=== PATIENT | female | born 1950 | race Caucasian/White ===

== ENCOUNTER 2024-04-14 12:00 | Emergency (ER) | payer OTHER ==
--- OUTSIDE RECORDS SUMMARY | 2024-04-14 12:03 | XMS REPORT | Continuity of Care Document ---
Author Name Unknown Address [address] [facility] [address] thconnect Address [address] [facility] [address] [place] [address] Care Team Providers Care Loom Repairer Name Role Phone Pcp, Patient Does Not Have A Primary Care Physic jose DOREEN ZAMBRANO Attending Clinician Unavailable Doreen Zambrano PA-C Attending Clinician Unknown, Attending Attending Clinician Unavailab le Payers Payer Name Policy Type Policy Number Effective Date Expirati on Date Source MEDICARE PART A \T\ B [id number] 1994 00:00:00 Allergies, Adverse Reactions, Alerts Allergy Name Allergy Type Status Severity Reaction(s) Onset Date Inactive Date Treating Clinician Comments Source CODEINE DRUG INGREDI Active High Unknown-Cmnt 04-12 00:00: 00 [facility] Codeine Propensi ty to adverse reaction s Active Unknown - See comments 04-12 00:00: 00 [facility] Social History Social Habit Start Date Stop Date Quantity Comments Source Sexual orientation [facility] Sex assigned at 1950 00:00:00 1950 00:00:00 [facility] Smoking Status Start Date Stop Date Source Tobacco smoking consumption unknown [facility] Medications Ordered Medication Name Filled Medication Name Start Date Stop Date Current Medication? Ordering Clinician Indication Dosage Frequency Signature (SIG) Comments Components Source dexamethaso ne (DECADRON PHOSPHATE) 4 mg/mL injection 4 mg 04-12 17:15: 00 04-12 17:34 :00 No [id number] 4mg 4 mg, Intramuscu lar, ONCE, 1 dose, On Mon04/12/24 at 1115, 1 mL [facility] cetirizine 10 mg tablet 04-12 00:00: 00 Yes [id number] 10mg Take 1 tablet by mouth in the morning. [facility] fluticasone propionate 50 mcg/actuati on nasal spray 04-12 00:00: 00 Yes [id number] 2{spray } Use 2 Sprays in each nostril in the morning. [facility] azelastine 137 mcg (0.1 %) nasal spray 04-12 00:00: 00 Yes [id number] 1{spray } Use 1 Micro in each nostril in the morning and 1 Micro in the evening. Use in each nostril as directed [facility] bromphenira mine-pseudo ephedrine-D M (BROMFED DM) 2-30-10 mg/5 mL syrup 04-12 00:00: 00 Yes [id number] 5mL Take 5 mL by mouth 3 (three) times daily as needed for Cold symptoms or Cough. [facility] Vital Signs Vital Name Observation Time Observation Value Comments S reid Systolic blood pressure 2024-04-12 17:02:00 105 mm[Hg] [facility] Diastolic blood pressure 2024-04-12 17:02:00 81 mm[Hg] [facility] Heart rate 2024-04-12 17:02:00 84 /min [facility] Body temperature 2024-04-12 17:02:00 37.28 Shannan [facility] Respiratory rate 2024-04-12 17:02:00 15 /min [facility] Body height 2024-04-12 17:02:00 165.1 cm [facility] Body weight 2024-04-12 17:02:00 71.668 kg [facility] BMI 2024-04-12 17:02:00 26.29 kg/m2 [facility] Oxygen saturation in Arterial blood by Pulse oximetry 2024-04-12 17:02:00 96 /min [facility] Encounters Start Date/Time End Date/Time Encounter Type Admission Type Attending Clinicians Care Facility Care Department Encounter ID Source 2024-04-12 11:00:00 2024-04-12 11:44:15 Outpatient R DOREEN ZAMBRANO [facility] [id number] [facility] 2024-04-12 11:00:00 2024-04-12 11:44:15 Urgent Care Doreen Zambrano Unknown, Attending [facility] [id number] [facility]
[2024-04-14 13:17] LABS: SARS-CoV-2 Antigen CONTROL BLUE LINE VIS/BG OK; SARS-CoV-2 Antigen Rapid Res Negative (Negative)
--- NOTE | 2024-04-14 13:33 | RAD REPORT ---
EXAMINATION: TWO VIEW CHEST XR CLINICAL INDICATION: Cough;Congestion TECHNIQUE: 2 views of the chest was performed. COMPARISON: No prior exam. FINDINGS: The lungs are hyperexpanded suggesting COPD. The heart is upper limit of normal in size. No displaced fractures evident. IMPRESSION: COPD is suspected without acute finding identified.
--- NOTE | 2024-04-14 14:09 | ER ---
Nurse's Notes [facility] Name: Gabbi Vital Age: 73 yrs Sex: Female : 1950 Arrival Date: 04/14/2024 Time: 12:00 Bed 16 Private MD: Diagnosis: Acute tonsillitis, unspecified;Unspecified acute conjunctivitis, bilateral;Acute bronchitis, unspecified Presentation: 04/14 12:20 Chief complaint: Patient states: cough, sinus drainage that all began Monday. ss Coronavirus screen: Client denies travel out of the [place] in the last 14 days. Ebola Screen: Patient denies exposure to infectious person. Patient denies travel to an Ebola-affected area in the 21 days before illness onset. Initial Sepsis Screen: Does the patient meet any 2 criteria? No. Patient's initial sepsis screen is negative. Does the patient have a suspected source of infection? No. Patient's initial sepsis screen is negative. Risk Assessment: Do you want to hurt yourself or someone else? Patient reports no desire to harm self or others. Onset of symptoms was April 08, 2024. 12:20 Method Of Arrival: Ambulatory ss 12:20 Acuity: JOSE 3 ss Historical: - Allergies: 12:21 No Known Allergies; ss - PMHx: 12:21 None; ss - Infectious Disease History:: Denies. - Social history:: Smoking status: Patient/guardian denies using tobacco, the patient reports quitting approximately 20 years ago. Screenin:19 [facility] ED Fall Risk Assessment (Adult) History of falling in the last 3 months, kc6 including since admission No falls in past 3 months (0 pts) Confusion or Disorientation No (0 pts) Intoxicated or Sedated No (0 pts) Impaired Gait No (0 pts) Mobility Assist Device Used No (0 pt) Altered Elimination No (0 pt) Score/Fall Risk Level 0 - 2 = Low Risk Oriented to surroundings, Maintained a safe environment, Educated pt \T\ family on fall prevention, incl call for assistance when getting out of bed. Abuse screen: Denies threats or abuse. Denies injuries from another. Nutritional screening: No deficits noted. Tuberculosis screening: No symptoms or risk factors identified. Assessment: 14:20 General: Appears in no apparent distress. comfortable, well groomed, well developed, kc6 Behavior is calm, cooperative, appropriate for age, Reports feeling ill for > 3 days. Pain: Denies pain. Neuro: Level of Consciousness is awake, alert, obeys commands, Oriented to person, place, time, situation, Appropriate for age. Cardiovascular: Capillary refill < 3 seconds. Respiratory: Reports cough that is persistent Airway is patent Trachea midline Respiratory effort is even, unlabored, Respiratory pattern is regular, symmetrical. GI: No signs and/or symptoms were reported involving the gastrointestinal system. : No signs and/or symptoms were reported regarding the genitourinary system. EENT: Reports nasal congestion pain when swallowing. EENT: Eyes reddened. Throat is reddened bilaterally with gag reflex present. Derm: No signs and/or symptoms reported regarding the dermatologic system. Skin is intact, is healthy with good turgor, Skin is pink, warm \T\ dry. Musculoskeletal: No signs and/or symptoms reported regarding the musculoskeletal system. Circulation, motion, and sensation intact. Range of motion: intact in all extremities. Vital Signs: 12:20 BP 138 / 92; Pulse 79; Resp 17; Temp 98(TE); Pulse Ox 98% on R/A; Weight 70.31 kg; ss Height 5 ft. 5 in. ; 12:20 Body Mass Index 25.79 (70.31 kg, 165.1 cm) ED Course: 12:04 Patient arrived in ED. im 12:07 Joyce Jj PA-C is PHCP. sb4 12:07 Andrés Davis MD is Attending Physician. sb4 12:21 Triage completed. ss 12:21 Arm band placed on right wrist. ss 12:37 Strep Sent. kj2 12:37 Flu Sent. kj2 12:37 SARS RAPID Sent. kj2 13:24 Chest Pa And Lat (2 Views) XRAY In Process Unspecified. EDMS 14:11 Laila Kwok, RUT is Primary Nurse. kc6 14:19 Patient has correct armband on for positive identification. Bed in low position. Call kc6 light in reach. Side rails up X 1. Pulse ox on. NIBP on. Door closed. Noise minimized. Lights dimmed. Pillow given. 14:19 No provider procedures requiring assistance completed. Patient did not have IV access kc6 during this emergency room visit. Administered Medications: 14:18 Drug: Dexamethasone IM 10 mg IM once Route: IM; Site: right deltoid; kc6 Outcome: 14:08 Discharge ordered by . sb4 14:19 Discharged to home ambulatory, kc6 14:19 Condition: good 14:19 Discharge instructions given to patient, Instructed on discharge instructions, follow up and referral plans. medication usage, Demonstrated understanding of instructions, follow-up care, medications, Prescriptions given X 3, 14:21 Patient left the ED. kc6 Signatures: Dispatcher [employer] EDMS Jennifer Laguerre, RN RN Laila Posada RN RN kc6 Joyce Jj, PA-C PA-C Yuliet Armijo Krystal, RN RN kj2
--- NOTE | 2024-04-14 14:09 | EDPHYS ---
Physician Documentation [facility] Name: Gabbi Vital Age: 73 yrs Sex: Female : 1950 Arrival Date: 04/14/2024 Time: 12:00 Bed 16 Private MD: ED Physician Andrés Davis HPI: 04/14 13:03 This 73 yrs old Female presents to ER via Ambulatory with complaints of flu symptoms. sb4 13:17 patient reports feeling sick for about 1 week- cough, sore throat, sinus congestion, sb4 post nasal drip. has been seen at urgent care twice, states she was not fully examined or swabbed, doesn't know what she has. has been taking OTC medications- decongestants, eye drops, cough suppressants, nasal sprays- without significant improvement. states today she woke up with yellow drainage out of both of her eyes. Historical: - Allergies: 12:21 No Known Allergies; ss - PMHx: 12:21 None; ss - Infectious Disease History:: Denies. - Social history:: Smoking status: Patient/guardian denies using tobacco, the patient reports quitting approximately 20 years ago. ROS: 13:17 Cardiovascular: Negative for chest pain, palpitations, and edema, sb4 13:17 Eyes: Positive for discharge, pain, 13:17 ENT: Positive for hoarseness, nasal discharge, sinus congestion, sore throat, 13:17 Respiratory: Positive for cough, with green sputum, 13:17 All other systems are negative, Exam: 13:53 Head/Face: Normocephalic, atraumatic. Cardiovascular: Regular rate and rhythm with a sb4 normal S1 and S2. Respiratory: No increased work of breathing, no retractions or nasal flaring. Skin: Warm, dry with normal turgor. Normal color with no rashes, no lesions, and no evidence of cellulitis. 13:53 Constitutional: The patient appears alert, awake, obviously ill, 13:53 Eyes: Conjunctiva: exudate, bilaterally, 13:53 ENT: TM's: are normal, no acute changes, Posterior pharynx: Tonsils: bilaterally enlarged, with erythema, with exudate, Vital Signs: 12:20 BP 138 / 92; Pulse 79; Resp 17; Temp 98(TE); Pulse Ox 98% on R/A; Weight 70.31 kg; ss Height 5 ft. 5 in. ; 12:20 Body Mass Index 25.79 (70.31 kg, 165.1 cm) ss MDM: 12:10 Medical Screening Exam initiated sb4 13:53 Data reviewed: vital signs, nurses notes, lab test result(s), radiologic studies, and sb4 as a result, I will discharge patient. Counseling: I had a detailed discussion with the patient and/or guardian regarding the historical points, exam findings, and any diagnostic results supporting the discharge/admit diagnosis, lab results, radiology results, the need for outpatient follow up, for definitive care, to return to the emergency department if symptoms worsen or persist or if there are any questions or concerns that arise at home. 04/14 12:26 Order name: Strep sb4 04/14 12:26 Order name: SARS RAPID; Complete Time: 13:19 sb4 04/14 12:26 Order name: Flu; Complete Time: 13:19 sb4 04/14 13:21 Order name: Throat Culture EDMS 04/14 12:26 Order name: Chest Pa And Lat (2 Views) XRAY; Complete Time: 13:34 sb4 Administered Medications: 14:18 Drug: Dexamethasone IM 10 mg IM once Route: IM; Site: right deltoid; kc6 Disposition: 04/15 09:05 Co-signature as Attending Physician, Andrés Davis MD I reviewed the patient's care rn provided by the Advanced Practice Provider and agree with the diagnosis and treatment plan. Disposition Summary: 04/14/24 14:08 Discharge Ordered Notes: Location: Home sb4 Problem: an ongoing problem sb4 Symptoms: are unchanged sb4 Condition: Stable sb4 Diagnosis - Acute tonsillitis, unspecified sb4 - Unspecified acute conjunctivitis, bilateral sb4 - Acute bronchitis, unspecified sb4 Followup: sb4 - With: Emergency Department - When: As needed - Reason: Trouble breathing, Worsening of condition Discharge Instructions: - Discharge Summary Sheet sb4 - Acute Bronchitis, Adult sb4 - Bacterial Conjunctivitis, Adult sb4 - Tonsillitis, [id number] sb4 Forms: - Antibiotic Education sb4 - Patient Portal Instructions sb4 - Leadership Thank You Letter sb4 Prescriptions: - polymyxin B sulf-trimethoprim 10,000 unit- 1 mg/mL Ophthalmic drops - instill 1 drop OPHTHALMIC route 4 times per day for 5 days; 10 milliliter; sb4 Refills: 0, Product Selection Permitted - Amoxicillin 875 mg Oral Tablet - take 1 tablet ORAL route every 12 hours for 10 days; 20 tablet; Refills: 0, sb4 Product Selection Permitted - Prednisone 20 mg Oral Tablet - take 1 tablet ORAL route every 12 hours for 5 days; 10 tablet; Refills: 0, sb4 Product Selection Permitted Signatures: Dispatcher [employer] EDMS Andrés Davis MD MD rn Blanchard, Shelby, RN RN Laila Posada RN RN kcJoyce Saucedo, PA-C PA-C sb4 Corrections: (The following items were deleted from the chart) 04/14 12:27 12:27 Chest Pa And Lat (2 Views)+[email or web address] ordered. EDWA EDWA
[2024-04-14] MEDS ORDERED: dexAMETHasone 10 MG/ML VIAL ONE (14:14)
[2024-04-14 14:25] VITALS: BP 138/92; TEMP 98; O2SAT 98
== END 2024-04-14 14:21 | disposition home or self-care (01) ==
LOC: ER 12:00
DX: J20.9 Acute bronchitis, unspecified (principal); J03.90 Acute tonsillitis, unspecified; H10.33 Unspecified acute conjunctivitis, bilateral; Z11.52 Encounter for screening for COVID-19
CPT/HCPCS: 87070; 36415; 87081; 87804 ×2; 71046; 96372; 99284; 87811; J1100